=== PATIENT | male | born 1990 | race Caucasian/White ===

== ENCOUNTER 2020-09-14 02:07 | Emergency (ER) | payer MEDICAID, SELFPAY ==
[2020-09-14 02:12] VITALS: PULSE 83; RESP 16; TEMP 36.8; O2SAT 99; BMI 19.9
--- NOTE | 2020-09-14 02:31 | W.ED.DENTAL ---
HPI - Dental/Oral General: Chief complaint: Dental/Oral Stated complaint: tooth ache Time Seen by Provider: 09/14/20 02:14 History of Present Illness: MD Complaint: tooth pain Location: Tooth # (30) Onset (ago): hour(s) (24) Duration: constant Severity: moderate Relieving factors: nothing Exacerbating factors: chewing Context: history of dental caries and poor dental care Associated symptoms: Denies fever(s), sore throat or tongue swelling Review of Systems Const: Denies: fever(s) Card: Denies: chest pain Resp: Denies: dyspnea All/Imm: Denies: tongue swelling Physical Exam Const: COMMON NORMALS: no acute distress and alert HENMT: HEAD & SCALP: normal to inspection FACE & SINUS: normal facial exam TEETH & GINGIVA: Yes abnormal tooth and associated gingiva (#30 decay with some swelling surrounding) THROAT: posterior oropharynx normal Chest: COMMONS NORMALS: normal inspection of the chest Resp: COMMON NORMALS: normal respiratory effort, No use of accessory muscles and clear to auscultation bilaterally AUSCULTATION: clear to auscultation bilaterally Cardio: COMMON NORMALS: regular rate and regular rhythm RATE: regular rate RHYTHM: regular rhythm Neuro: SENSORIUM/ORIENTATION: Yes alert Course Vital Signs: Vital signs: Vital Signs Temperature 98.2 F 09/14/20 02:12 Pulse Rate 83 09/14/20 02:12 Respiratory Rate 16 09/14/20 02:12 Pulse Oximetry 99 09/14/20 02:12 Discharge Plan Discharge Patient Disposition: Home Clinical Impression: Dental caries Condition: Stable Prescriptions: New ketorolac 10 mg tablet 10 mg PO TID PRN (Reason: pain) Qty: 10 RF: 0 Keflex 500 mg capsule 500 mg PO Q6H 10 Days Qty: 40 RF: 0 Discharge Orders: Discharge ED (Routine); Ordered 09/14/20 Ordered By: Rick Hernández Referrals: Ralph Najera Jr, MD [Primary Care Provider] - Discharge Diet: Advance as tolerated Patient Instructions: Dental Caries (ED), Toothache (ED) Activity Restrictions/Additional Instructions: See a dentist about your tooth as soon as possible. Coding Level of Care Code ED Clipper Counters for Chg Fwd Exam Detailed
[2020-09-14 02:48] VITALS: RESP 17; O2SAT 98
[2020-09-14] MEDS: oxyCODONE-APAP 5-325 mg Tablet 2 TAB PO (02:48)
[2020-09-14 02:52] VITALS: BP 168/102; PULSE 67; RESP 17; O2SAT 98
[2020-09-14 02:56] VITALS: BP 168/117; PULSE 67; RESP 17; TEMP 36.8; O2SAT 98
== END 2020-09-14 02:56 | disposition home or self-care (01) ==
PROVIDERS: Emergency Provider Emergency Medicine; PCP Pediatrics Adolescent Medicine
DX: K02.9 Dental caries, unspecified (principal)
CPT/HCPCS: 12345; 99281; 99282

== ENCOUNTER 2022-12-01 01:01 | Emergency (ER) | payer MEDICAID, SELFPAY ==
[2022-12-01 01:09] VITALS: BP 128/95; PULSE 60; RESP 16; TEMP 36.8; O2SAT 99; BMI 20.5
--- NOTE | 2022-12-01 01:09 | W.ED.DENTAL ---
HPI - Dental/Oral General: Stated complaint: Tooth Ache Time Seen by Provider: 12/01/22 01:06 Source: patient Mode of arrival: ambulatory Limitations: no limitations History of Present Illness: 32-year-old male states he had dental pain over the last 2 days he states he does have poor dentition he denies any fever denies any difficulty swallowing he rates his pain a 4 out of 10 currently he denies any worsening proving factors. Associated symptoms: Denies fever(s) Review of Systems Const: Denies: fever(s) or chills ENMT: Reports: mouth pain; Denies: throat pain GI: Denies: nausea or vomiting Musc: Denies: neck pain Skin/Breast: Denies: rash PFSH ED PFSH: Medical History (Updated 12/01/22 @ 01:10 by Rosamaria Garcia MD) No pertinent past medical history Physical Exam Const: COMMON NORMALS: no acute distress, average body habitus and patient oriented x3 HENMT: COMMON NORMALS: atraumatic HEAD & SCALP: atraumatic OTHER: Very poor dentition tenderness over right lower molar no abscess no trismus Eye: COMMON NORMALS: conjunctivae normal CONJUNCTIVA: Yes conjunctivae normal Chest: COMMONS NORMALS: normal inspection of the chest Resp: COMMON NORMALS: normal respiratory effort Cardio: COMMON NORMALS: regular rate RATE: regular rate Extremity: COMMON NORMALS: normal to inspection Neuro: COMMON NORMALS: patient oriented x3 Psych: COMMON NORMALS: mental status grossly normal Skin: COMMON NORMALS: no rashes or lesions noted GENERAL SKIN EXAM: no rashes or lesions noted MDM - Dental/Oral Medical Decision Making Patient presents here with dental pain he does have very poor dentition no signs of abscess or trismus patient is stable for discharge we will place him on Naprosyn and Augmentin he needs to follow-up with PCP. Discharge Plan Discharge Patient Disposition: Home Clinical Impression: Toothache Prescriptions: New naproxen [Naprosyn] 500 mg tablet 500 mg PO BID PRN (Reason: pain) Qty: 20 0RF amoxicillin-pot clavulanate [Augmentin] 500-125 mg tablet 1 tab PO BID Qty: 14 0RF No Action ketorolac 10 mg tablet 10 mg PO TID PRN (Reason: pain) Qty: 10 0RF Discharge Orders: Discharge ED (Routine); Ordered 12/01/22 Ordered By: Rosamaria Garcia Discharge Diet: Advance as tolerated Discharge Activity: Resume usual activity Patient Instructions: Toothache (ED) Coding Level of Care Code ED Database Report Writer for Doug Zamora
[2022-12-01 01:11] VITALS: PULSE 66; RESP 14; O2SAT 99
[2022-12-01] MEDS: amoxicillin-clav 875-125 mg Tablet 1 TAB PO (01:13)
[2022-12-01] MEDS: naproxen 500 mg Tablet PO (01:13)
[2022-12-01 01:22] VITALS: BP 146/98; PULSE 51; RESP 14; O2SAT 98
--- NOTE | 2022-12-02 14:53 | DCPLANNER ---
telesales manager called patient due to no primary care physician - no answer at this time.
== END 2022-12-01 01:22 | disposition home or self-care (01) ==
PROVIDERS: Emergency Provider Emergency Medicine
DX: K08.89 Other specified disorders of teeth and supporting structures (principal)
CPT/HCPCS: 99284

== ENCOUNTER 2023-04-27 18:25 | Emergency (ER) | payer SELFPAY ==
[2023-04-27 18:34] VITALS: BP 136/87; PULSE 60; TEMP 36.4; O2SAT 98; BMI 19.9
--- NOTE | 2023-04-27 18:52 | XRR_ITS ---
PROCEDURE INFORMATION: Exam: XR Left Tibia and Fibula Exam date and time: 04/27/2023 6:58 PM Age: 33 years old Clinical indication: Injury or trauma; Other: Dog bite; Wound; Lower leg; Left; Foreign body involvement not specified TECHNIQUE: Imaging protocol: Radiologic exam of the left tibia and fibula. Views: 2 views. COMPARISON: No relevant prior studies available. FINDINGS: Bones/joints: Tibia and fibula are intact. Negative for fracture. Soft tissues: Normal. XR/XR tibia fibula LT 2V [id number] IMPRESSION: No acute findings.
--- NOTE | 2023-04-27 18:52 | ED_ITS ---
HPI - Animal Bite General: Chief Complaint: Animal Bite Stated Complaint: dog bite on left leg Time Seen by Provider: 04/27/23 18:44 History of Present Illness: Patient is in today after dog bite. Patient reports that his uncles dog (sixto) was fighting with his dog and he got in between them. He reports multiple puncture wounds on his left lower extremity. He reports that he is able to bear weight on the leg. He states that he is having some numbness and tingling and feels cold. He reports that the dog is up-to-date on all vaccinations including rabies. He states that he is not up-to-date on tetanus vaccine. Associated symptoms: Deny chills, fever(s), headache(s) or syncope Review of Systems Const: Denies: fever(s), chills or body aches Card: Denies: chest pain, palpitations, irregular heart rhythm, lightheadedness or syncope Resp: Denies: dyspnea, productive cough or non-productive cough GI: Denies: abdominal pain, nausea or vomiting : Denies: flank pain, dysuria, urinary frequency, urinary urgency or urinary hesitancy Musc: Denies: neck pain or back pain Skin/Breast: Reports: other (Dog bite left lower leg) Neuro: Denies: headache(s), numbness in extremities or weakness in extremities [facility] ED PFSH: Medical History No pertinent past medical history Social History Substance/Drug Use: current Physical Exam Const: COMMON NORMALS: no acute distress, patient oriented x3 and alert Resp: COMMON NORMALS: normal respiratory effort and No use of accessory muscles Extremity: OTHER: Left lower leg with several small puncture wounds noted across the anterior, medial, lateral lower leg. Bleeding is controlled. The lateralmost puncture wound is approximately half a centimeter with surrounding bruising and mild swelling. Patient is able to bear weight on the leg. Pedal pulses intact strong palpable. CSM within normal limits. Neuro: COMMON NORMALS: patient oriented x3 SENSORIUM/ORIENTATION: Yes alert Course Vital Signs: Vital signs: Vital Signs Temperature 97.5 F L 04/27/23 18:34 Pulse Rate 60 04/27/23 18:34 Blood Pressure 136/87 04/27/23 18:34 Pulse Oximetry 98 04/27/23 18:34 Oxygen Delivery Me thod Room Air 04/27/23 18:34 MDM - Animal Bite Medical Decision Making Dog bite X-ray left tib-fib?2 view wet read no acute osseous deformities. Radiologist review no acute findings with no evidence of radiopaque foreign body Update tetanus Toradol 1 dose given for pain Wounds are cleaned and irrigated Start patient on Augmentin antibiotic post dog bite. Advised to keep wounds clean and dry. Follow-up with primary care provider. Return to the ER as needed for new or worsening symptoms. Dog bite form completed to submit to the health department. Lab Data Radiology Impressions Tibia/Fibula X-Ray 04/27/23 18:52 IMPRESSION: No acute findings. ADDENDUM: 04/27/23 192 Wound along the anterolateral lower extremity. No evidence of radiopaque foreign body. All radiology interpretation(s) finalized by discharge Discharge Plan Discharge Patient Disposition: Home Clinical Impression: Dog bite Condition: Stable Prescriptions: New amoxicillin-pot clavulanate 875-125 mg tablet 1 tab PO BID Qty: 20 0RF No Action ketorolac 10 mg tablet 10 mg PO TID PRN (Reason: pain) Qty: 10 0RF Naprosyn 500 mg tablet 500 mg PO BID PRN (Reason: pain) Qty: 20 0RF Augmentin 500-125 mg tablet 1 tab PO BID Qty: 14 0RF Discharge Orders: Discharge ED (Routine); Ordered 04/27/23 Ordered By: Deanne Jeffrey Discharge Diet: Usual diet Discharge Activity: Resume usual activity Patient Instructions: Animal Bite (ED) Activity Restrictions/Additional Instructions: Keep wounds clean and dry. Take antibiotics as directed. Use Tylenol and Motrin as needed for pain. Your tetanus vaccine was updated today. Follow-up with primary care provider as needed. Return to the ER for new or worsening symptoms. Coding Level of Care Code ED Agricultural Sciences Professor for Doug Zamora
[2023-04-27] MEDS: ketorolac 60 mg/2 mL INJ IM (19:12)
[2023-04-27] MEDS: tetanus-dipt-pertussis 0.5 mL SDV IM (19:12)
[2023-04-27] MEDS: amoxicillin-clav 875-125 mg Tablet 1 TAB PO (20:37)
== END 2023-04-27 20:51 | disposition home or self-care (01) ==
PROVIDERS: Emergency Provider Nurse Practitioner Family
DX: S81.852A Open bite, left lower leg, initial encounter (principal); W54.0XXA Bitten by dog, initial encounter; Z23 Encounter for immunization
CPT/HCPCS: 73590; 90715; 96372; 99284; J1885